=== PATIENT | male | born 1960 | race Two or more races ===

== ENCOUNTER 2021-06-23 13:33 | Inpatient (IN) | payer MEDICAID, OTHER ==
[~2021-06-23] VITALS: Ht 175.3 cm; Wt 90.5 kg
[2021-06-23] MEDS ORDERED: ACETAMINOPHEN 325MG TABLET PO STA (14:01)
[2021-06-23] MEDS ORDERED: MORPHINE SULFATE 4 MG/ML CPJ (NOT FOR IM USE) IV STA (14:01)
[2021-06-23] MEDS ORDERED: ONDANSETRON HCL 4MG/2ML INJ IV STA (14:01)
[2021-06-23] MEDS ORDERED: SODIUM CHLORIDE 0.9% 1000ML BAG (SEPSIS BOLUS) IV ONE (14:15)
[2021-06-23] MEDS ORDERED: CEFTRIAXONE 1 G PREMIX 50 ML IV ONE (14:15)
[2021-06-23] MEDS ORDERED: AZITHROMYCIN 500 MG in DEXT 5% WATER 250 ML IV ONE (14:15)
[2021-06-23 15:12] LABS: HEMATOCRIT. 40.3 % (42.0-52.0); HEMOGLOBIN. 13.4 g/dL (14.0-18.0); MEAN CORPUSCULAR HEMOGLOBIN 28.6 pg (28.0-32.0); MEAN PLATELET VOLUME 6.9 fl (7.4-10.4); PLATELET 372 x1000/uL (130-400); RED BLOOD CELL COUNT 4.69 mill/uL (4.7-6.1); RED CELL DISTRIBUTION WIDTH 13.6 % (11.6-14.6)
[2021-06-23 15:18] LABS: CHLORIDE 106 mEq/L (98-107)
[2021-06-23 15:28] LABS: CREATINE KINASE 37 IU/L (39-308)
[2021-06-23 15:29] LABS: T4 FREE 1.28 ng/dL (0.76-1.46)
[2021-06-23 15:31] LABS: D-DIMER 1.75 mg/L FEU (<0.50); PROTHROMBIN TIME 11.1 sec (9.6-11.0)
[2021-06-23 16:38] LABS: PLATELET ESTIMATE NORMAL
[2021-06-23 16:57] LABS: CLARITY URINE CLEAR (CLEAR); COLOR URINE YELLOW (YELLOW); KETONES URINE TRACE (NEGATIVE); LEUKOCYTE ESTERASE URINE NEGATIVE (NEGATIVE); NITRITE URINE NEGATIVE (NEGATIVE); OCCULT BLOOD URINE 1+ (NEGATIVE); PROTEIN URINE 2+ (NEGATIVE)
[2021-06-23] MEDS ORDERED: ACETAMINOPHEN 325MG TABLET PO PRN ×2 (19:45)
[2021-06-23] MEDS ORDERED: CLONIDINE 0.1MG TABLET PO PRN (19:45)
[2021-06-23] MEDS ORDERED: IPRATROPIUM/ALBUTEROL 0.5-3(2.5)MG/3ML NEB HHN PRN (19:45)
[2021-06-23] MEDS ORDERED: VANCOMYCIN 2,000 MG in DEXT 5% WATER 500 ML IV NR (21:00)
[2021-06-23] MEDS: SODIUM CHLORIDE 0.9% 1,000 ML IV SCH (21:29)
[2021-06-23] MEDS ORDERED: PIPERACILLIN/TAZOBACTAM 3.375 G in DEXTROSE 5% WATER 50 ML IV SCH (22:00)
[2021-06-24] VITALS (28 sets, daily range): BP systolic 100–154; BP diastolic 52–82
[2021-06-24] MEDS: LORAZEPAM 0.5MG TABLET PO PRN (00:01)
[2021-06-24] MEDS: ONDANSETRON HCL 4MG/2ML INJ IV PRN ×3 (00:03→15:31)
[2021-06-24] MEDS ORDERED: FINA5TAB11 PO (04:22)
[2021-06-24] MEDS ORDERED: EMPA1TAB7 PO (04:23)
[2021-06-24] MEDS ORDERED: *PATIENT'S OWN MEDICATION STORAGE XX SCH (05:45)
[2021-06-24] MEDS ORDERED: DEXTROSE 50% WATER 50ML SYRINGE IV PRN ×2 (05:45)
[2021-06-24] MEDS: PIPERACILLIN/TAZOBACTAM 3.375 G in DEXTROSE 5% WATER 50 ML IV SCH ×3 (06:20→22:44)
[2021-06-24] MEDS: BLOOD SUGAR DIAGNOSTIC STRIP TEST SCH ×5 (06:20→20:28)
[2021-06-24] MEDS: SODIUM CHLORIDE 0.9% 1,000 ML IV SCH ×2 (06:20→18:13)
[2021-06-24] MEDS ORDERED: BLOOD SUGAR DIAGNOSTIC STRIP TEST SCH (07:20)
[2021-06-24] MEDS: INSULIN LISPRO 100 UNITS/ML SUBCUT SCH ×4 (07:35→20:28)
[2021-06-24] MEDS: HYDROCODONE/ACETAMINOPHEN 5/325MG TABLET PO PRN (09:30)
[2021-06-24 09:33] LABS: BASOPHILS % 0.6 % (0.0-2.0); EOSINOPHILS % 0.2 % (0.0-5.0); HEMATOCRIT. 38.1 % (42.0-52.0); HEMOGLOBIN. 12.5 g/dL (14.0-18.0); LYMPHOCYTES % 10.4 % (20.0-50.0); MEAN CORPUSCULAR HEMOGLOBIN 28.6 pg (28.0-32.0); MONOCYTES % 3.9 % (2.0-8.0); NEUTROPHILS % 84.9 % (40.0-76.0); PLATELET 329 x1000/uL (130-400); RED BLOOD CELL COUNT 4.38 mill/uL (4.7-6.1); RED CELL DISTRIBUTION WIDTH 14.1 % (11.6-14.6)
[2021-06-24] MEDS ORDERED: PNEUMOCOCCAL 23-VAL P-SAC VAC 0.5 ML IM ONE (12:00)
[2021-06-24] MEDS ORDERED: SUCCINYLCHOLINE CHLORIDE 200MG/10ML IV ONE (16:39)
[2021-06-24] MEDS ORDERED: GLYCOPYRROLATE 0.2 MG/ML 2ML VIAL ONE (16:39)
[2021-06-24] MEDS ORDERED: PROPOFOL 200MG/20ML VIAL IV ONE (16:39)
[2021-06-24] MEDS ORDERED: FENTANYL CITRATE/PF 50MCG/ML 2ML VIAL ONE (16:39)
[2021-06-24] MEDS ORDERED: METOCLOPRAMIDE HCL 10MG/2ML VIAL ONE (16:39)
[2021-06-24] MEDS ORDERED: MIDAZOLAM HCL 2 MG/2 ML VIAL ONE (16:39)
[2021-06-24] MEDS ORDERED: ONDANSETRON HCL 4MG/2ML INJ ONE (16:39)
[2021-06-24] MEDS ORDERED: CEFAZOLIN SODIUM 1000MG/VIAL ONE (16:44)
[2021-06-24] MEDS ORDERED: DILTIAZEM HCL 5MG/ML 5ML VIAL IV NR (17:30)
[2021-06-24] MEDS ORDERED: PHENYLEPHRINE 50 MG in DEXT 5% WATER 245 ML IV PRN (17:45)
[2021-06-24] MEDS ORDERED: ENOXAPARIN 80MG/0.8ML SYR SUBCUT NR (17:45)
[2021-06-24] MEDS ORDERED: DILTIAZEM HCL 5MG/ML 5ML VIAL IV PRN (17:45)
[2021-06-24] MEDS ORDERED: DIGOXIN 500MCG/2ML AMP IV NR (18:00)
[2021-06-24] MEDS ORDERED: NALOXONE HCL 0.4MG/ML VIAL IV PRN (18:00)
[2021-06-24] MEDS: ASPIRIN 81MG TABLET PO SCH (18:13)
[2021-06-24] MEDS: VANCOMYCIN 1250MG in DEXTROSE 5% WATER 250ML IV SCH (20:23)
[2021-06-24] MEDS: DILTIAZEM HCL 125 MG in DEXT 5% WATER 100 ML IV PRN (20:28)
[2021-06-24] MEDS: DIGOXIN 500MCG/2ML AMP IV SCH (23:33)
[2021-06-25] VITALS (97 sets, daily range): BP systolic 99–152; BP diastolic 28–115
[2021-06-25] MEDS: HYDROCODONE/ACETAMINOPHEN 5/325MG TABLET PO PRN ×2 (03:47→15:56)
[2021-06-25] MEDS: DIGOXIN 500MCG/2ML AMP IV SCH (03:47)
[2021-06-25] MEDS: DILTIAZEM HCL 125 MG in DEXT 5% WATER 100 ML IV PRN (05:07)
[2021-06-25] MEDS: PIPERACILLIN/TAZOBACTAM 3.375 G in DEXTROSE 5% WATER 50 ML IV SCH ×3 (06:46→21:22)
[2021-06-25 07:21] LABS: BASOPHILS % 0.6 % (0.0-2.0); EOSINOPHILS % 1.2 % (0.0-5.0); HEMOGLOBIN. 11.9 g/dL (14.0-18.0); LYMPHOCYTES % 14.2 % (20.0-50.0); MEAN CORPUSCULAR HEMOGLOBIN 28.7 pg (28.0-32.0); MEAN CORPUSCULAR VOLUME 86.6 fL (80.0-94.0); MEAN PLATELET VOLUME 6.7 fl (7.4-10.4); MONOCYTES % 7.8 % (2.0-8.0); NEUTROPHILS % 76.2 % (40.0-76.0); PLATELET 335 x1000/uL (130-400); RED BLOOD CELL COUNT 4.16 mill/uL (4.7-6.1); RED CELL DISTRIBUTION WIDTH 13.7 % (11.6-14.6)
[2021-06-25] MEDS: BLOOD SUGAR DIAGNOSTIC STRIP TEST SCH ×4 (07:53→21:00)
[2021-06-25] MEDS: INSULIN LISPRO 100 UNITS/ML SUBCUT SCH ×4 (07:53→21:07)
[2021-06-25] MEDS: ASPIRIN 81MG TABLET PO SCH (08:29)
[2021-06-25] MEDS ORDERED: DEXT 5%/0.45% NACL 1000ML 1,000 ML IV SCH (10:30)
[2021-06-25] MEDS: MORPHINE SULFATE 2 MG/ML CPJ (NOT FOR IM USE) IV PRN (10:38)
[2021-06-25] MEDS ORDERED: IOHEXOL-300 50 ML BOTTLE IV ONE (10:39)
[2021-06-25] MEDS ORDERED: LIDOCAINE HCL 1% 20ML VIAL (Pyxis) INJ ONE ×2 (10:40→14:42)
[2021-06-25] MEDS ORDERED: AMIODARONE HCL 150 MG in DEXT 5% WATER 100 ML IV NR (11:00)
[2021-06-25] MEDS: ONDANSETRON HCL 4MG/2ML INJ IV PRN (11:21)
[2021-06-25 12:19] LABS: DIGOXIN 1.6 ng/mL (0.9-2.0)
[2021-06-25] MEDS ORDERED: DILTIAZEM HCL 5MG/ML 5ML VIAL IV SCH (13:00)
[2021-06-25] MEDS ORDERED: ESMOLOL 2500MG PREMIX 250 ML IV PRN (13:30)
[2021-06-25] MEDS: METOPROLOL TARTRATE 25MG TABLET PO SCH ×2 (13:39→21:00)
[2021-06-25] MEDS: AMIODARONE HCL 900 MG in DEXT 5% WATER 482 ML IV PRN (13:56)
[2021-06-25] MEDS ORDERED: AMIODARONE HCL 150 MG in DEXT 5% WATER 100 ML IV SCH (14:00)
[2021-06-25] MEDS: NITROGLYCERIN OINT 1GM/INCH UDPKT TD SCH ×2 (14:15→21:37)
[2021-06-25] MEDS ORDERED: ENOXAPARIN 80MG/0.8ML SYR SUBCUT NR (15:00)
[2021-06-25] MEDS: SODIUM CHLORIDE 0.9% 1,000 ML IV SCH (15:58)
[2021-06-25 20:51] LABS: *COCAINE SCREEN URINE NEGATIVE (NEGATIVE); PHENCYCLIDINE URINE SCREEN NEGATIVE (NEGATIVE)
[2021-06-25 20:52] LABS: *AMPHETAMINES SCREEN URINE NEGATIVE (NEGATIVE); *BARBITURATES SCREEN URINE NEGATIVE (NEGATIVE); *BENZODIAZEPINES SCREEN URINE PRESUMTIVE POSITIVE (NEGATIVE); CANNABINOID URINE SCREEN NEGATIVE (NEGATIVE); METHADONE URINE SCREEN NEGATIVE (NEGATIVE); OPIATES URINE SCREEN PRESUMTIVE POSITIVE (NEGATIVE)
[2021-06-25] MEDS: VANCOMYCIN 1250MG in DEXTROSE 5% WATER 250ML IV SCH (21:00)
[2021-06-26] VITALS (78 sets, daily range): BP systolic 67–175; BP diastolic 23–141
[2021-06-26] MEDS: PIPERACILLIN/TAZOBACTAM 3.375 G in DEXTROSE 5% WATER 50 ML IV SCH ×3 (05:51→22:14)
[2021-06-26] MEDS: NITROGLYCERIN OINT 1GM/INCH UDPKT TD SCH ×3 (06:00→22:14)
[2021-06-26 06:17] LABS: BASOPHILS % 0.3 % (0.0-2.0); HEMATOCRIT. 37.2 % (42.0-52.0); HEMOGLOBIN. 12.2 g/dL (14.0-18.0); LYMPHOCYTES % 11.7 % (20.0-50.0); MEAN CORPUSCULAR HEMOGLOBIN 28.7 pg (28.0-32.0); MEAN CORPUSCULAR VOLUME 87.3 fL (80.0-94.0); MONOCYTES % 5.1 % (2.0-8.0); NEUTROPHILS % 81.9 % (40.0-76.0); PLATELET 318 x1000/uL (130-400); RED BLOOD CELL COUNT 4.26 mill/uL (4.7-6.1); RED CELL DISTRIBUTION WIDTH 14.2 % (11.6-14.6)
[2021-06-26 06:33] LABS: CHLORIDE 106 mEq/L (98-107)
[2021-06-26 06:56] LABS: DIGOXIN 0.9 ng/mL (0.9-2.0)
[2021-06-26] MEDS: BLOOD SUGAR DIAGNOSTIC STRIP TEST SCH ×3 (07:50→18:11)
[2021-06-26] MEDS: INSULIN LISPRO 100 UNITS/ML SUBCUT SCH ×3 (08:20→18:11)
[2021-06-26] MEDS: SODIUM CHLORIDE 0.9% 1,000 ML IV SCH ×2 (08:56→19:53)
[2021-06-26] MEDS: METOPROLOL TARTRATE 25MG TABLET PO SCH ×2 (08:57→20:49)
[2021-06-26] MEDS ORDERED: AMIODARONE HCL 150 MG in DEXT 5% WATER 100 ML IV ONE (11:45)
[2021-06-26] MEDS: VANCOMYCIN 1 G PREMIX 200 ML IV SCH (13:31)
[2021-06-26] MEDS ORDERED: LIDOCAINE HCL 1% 20ML VIAL (Pyxis) INJ ONE (14:59)
[2021-06-26] MEDS ORDERED: IOHEXOL-300 50 ML BOTTLE IV ONE (14:59)
[2021-06-26] MEDS: AMIODARONE HCL 900 MG in DEXT 5% WATER 482 ML IV PRN (15:00)
[2021-06-26] MEDS ORDERED: FENTANYL CITRATE/PF 50MCG/ML 2ML VIAL ONE (15:32)
[2021-06-26] MEDS: MORPHINE SULFATE 2 MG/ML CPJ (NOT FOR IM USE) IV PRN (16:53)
[2021-06-26] MEDS: ONDANSETRON HCL 4MG/2ML INJ IV PRN (16:53)
[2021-06-26] MEDS: HYDROCODONE/ACETAMINOPHEN 5/325MG TABLET PO PRN (19:51)
[2021-06-26] MEDS: AMIODARONE HCL 200 MG TABLET PO SCH (20:49)
[2021-06-26] MEDS: LORAZEPAM 0.5MG TABLET PO PRN (20:50)
[2021-06-27] VITALS (64 sets, daily range): BP systolic 112–149; BP diastolic 27–108
[2021-06-27] MEDS: HYDROCODONE/ACETAMINOPHEN 5/325MG TABLET PO PRN (00:44)
[2021-06-27 06:02] LABS: BASOPHILS % 0.7 % (0.0-2.0); EOSINOPHILS % 0.9 % (0.0-5.0); HEMATOCRIT. 22.4 % (42.0-52.0); HEMOGLOBIN. 7.6 g/dL (14.0-18.0); LYMPHOCYTES % 17.5 % (20.0-50.0); MEAN CORPUSCULAR HEMOGLOBIN 29.2 pg (28.0-32.0); MEAN PLATELET VOLUME 7.1 fl (7.4-10.4); MONOCYTES % 7.1 % (2.0-8.0); NEUTROPHILS % 73.8 % (40.0-76.0); PLATELET 412 x1000/uL (130-400); RED CELL DISTRIBUTION WIDTH 13.8 % (11.6-14.6)
[2021-06-27] MEDS: NITROGLYCERIN OINT 1GM/INCH UDPKT TD SCH ×3 (06:42→21:07)
[2021-06-27] MEDS: PIPERACILLIN/TAZOBACTAM 3.375 G in DEXTROSE 5% WATER 50 ML IV SCH ×3 (06:42→21:07)
[2021-06-27] MEDS: SODIUM CHLORIDE 0.9% 1,000 ML IV SCH ×2 (08:03→22:49)
[2021-06-27] MEDS: VANCOMYCIN 1 G PREMIX 200 ML IV SCH (09:04)
[2021-06-27] MEDS: AMIODARONE HCL 200 MG TABLET PO SCH (09:04)
[2021-06-27] MEDS: METOPROLOL TARTRATE 25MG TABLET PO SCH ×2 (09:04→21:00)
[2021-06-27 11:55] LABS: HEMOGLOBIN 11.3 g/dL (14.0-18.0)
[2021-06-27] MEDS: DOCUSATE SODIUM 100MG CAPSULE PO PRN (18:24)
[2021-06-28] VITALS (21 sets, daily range): BP systolic 101–169; BP diastolic 26–120
[2021-06-28] MEDS: VANCOMYCIN 1 G PREMIX 200 ML IV SCH ×2 (02:01→20:31)
[2021-06-28] MEDS: PIPERACILLIN/TAZOBACTAM 3.375 G in DEXTROSE 5% WATER 50 ML IV SCH ×2 (05:01→14:58)
[2021-06-28] MEDS: NITROGLYCERIN OINT 1GM/INCH UDPKT TD SCH ×3 (06:48→22:14)
[2021-06-28 07:39] LABS: BASOPHILS % 0.9 % (0.0-2.0); EOSINOPHILS % 2.9 % (0.0-5.0); LYMPHOCYTES % 23.1 % (20.0-50.0); MEAN CORPUSCULAR HEMOGLOBIN 28.1 pg (28.0-32.0); MEAN CORPUSCULAR VOLUME 86.8 fL (80.0-94.0); MEAN PLATELET VOLUME 7.1 fl (7.4-10.4); MONOCYTES % 9.2 % (2.0-8.0); NEUTROPHILS % 63.9 % (40.0-76.0); PLATELET 388 x1000/uL (130-400); RED BLOOD CELL COUNT 4.14 mill/uL (4.7-6.1); RED CELL DISTRIBUTION WIDTH 13.9 % (11.6-14.6)
[2021-06-28 07:52] LABS: HEMATOCRIT. 35.9 % (42.0-52.0); HEMOGLOBIN. 11.6 g/dL (14.0-18.0)
[2021-06-28 08:11] LABS: CHLORIDE 109 mEq/L (98-107)
[2021-06-28 08:19] LABS: PHOSPHORUS 3.3 mg/dL (2.5-4.9)
[2021-06-28] MEDS: METOPROLOL TARTRATE 25MG TABLET PO SCH ×2 (08:42→22:00)
[2021-06-28] MEDS ORDERED: NITROGLYCERIN 50MCG/ML 10ML VIAL (CATH LAB) IV ONE (09:20)
[2021-06-28] MEDS ORDERED: HEPARIN SODIUM 1,000 UNIT/1ML VIAL IV ONE (09:20)
[2021-06-28] MEDS ORDERED: NICARDIPINE 100MCG/ML 10ML VIAL (CATH LAB) IV ONE (09:20)
[2021-06-28] MEDS: AMIODARONE HCL 200 MG TABLET PO SCH ×2 (10:34→20:31)
[2021-06-28] MEDS: SODIUM CHLORIDE 0.9% 1,000 ML IV SCH (11:15)
[2021-06-28] MEDS ORDERED: ASPIRIN/SOD BICARB/CITRIC ACID 324MG TAB EFF ONE (13:25)
[2021-06-28] MEDS ORDERED: LIDOCAINE HCL 1% 20ML VIAL (Pyxis) INJ ONE (13:26)
[2021-06-28] MEDS ORDERED: MIDAZOLAM HCL 2 MG/2 ML VIAL ONE (13:26)
[2021-06-28] MEDS ORDERED: FENTANYL CITRATE/PF 50MCG/ML 2ML VIAL ONE (13:26)
[2021-06-28] MEDS ORDERED: IODIXANOL 320MG/ML 100 ML BOTTLE IV ONE (13:27)
[2021-06-28] MEDS ORDERED: ONDANSETRON HCL 4MG/2ML INJ IV PRN (14:00)
[2021-06-28] MEDS ORDERED: ATROPINE SULFATE 1MG/10ML SYR IV PRN (14:00)
[2021-06-28] MEDS ORDERED: MORPHINE SULFATE 2 MG/ML CPJ (NOT FOR IM USE) IV PRN (14:00)
[2021-06-28] MEDS: AMLODIPINE 2.5MG TABLET PO SCH (22:13)
[2021-06-29] VITALS (17 sets, daily range): BP systolic 126–161; BP diastolic 58–95
[2021-06-29] MEDS: SODIUM CHLORIDE 0.9% 1,000 ML IV SCH ×2 (01:14→12:57)
[2021-06-29] MEDS: ACETAMINOPHEN 325MG TABLET PO PRN ×2 (01:55→20:02)
[2021-06-29] MEDS: NITROGLYCERIN OINT 1GM/INCH UDPKT TD SCH ×3 (06:14→23:24)
[2021-06-29 07:19] LABS: BASOPHILS % 0.9 % (0.0-2.0); EOSINOPHILS % 3.8 % (0.0-5.0); HEMATOCRIT. 37.6 % (42.0-52.0); HEMOGLOBIN. 12.5 g/dL (14.0-18.0); LYMPHOCYTES % 21.8 % (20.0-50.0); MEAN CORPUSCULAR HEMOGLOBIN 28.7 pg (28.0-32.0); MEAN CORPUSCULAR VOLUME 86.4 fL (80.0-94.0); MEAN PLATELET VOLUME 6.8 fl (7.4-10.4); MONOCYTES % 5.2 % (2.0-8.0); NEUTROPHILS % 68.3 % (40.0-76.0); PLATELET 455 x1000/uL (130-400); RED BLOOD CELL COUNT 4.36 mill/uL (4.7-6.1); RED CELL DISTRIBUTION WIDTH 13.6 % (11.6-14.6)
[2021-06-29 07:41] LABS: PHOSPHORUS 3.6 mg/dL (2.5-4.9)
[2021-06-29] MEDS: ASPIRIN 81MG EC TABLET PO SCH (08:19)
[2021-06-29] MEDS: AMIODARONE HCL 200 MG TABLET PO SCH ×2 (08:19→20:02)
[2021-06-29] MEDS: AMLODIPINE 2.5MG TABLET PO SCH ×2 (08:20→23:24)
[2021-06-29] MEDS: METOPROLOL TARTRATE 25MG TABLET PO SCH ×2 (09:00→21:00)
[2021-06-29] MEDS ORDERED: CEFTRIAXONE 2 G PREMIX 50 ML IV SCH (12:30)
[2021-06-29] MEDS ORDERED: CEFAZOLIN 2,000 MG in DEXT 5% WATER 100 ML IV SCH (14:00)
[2021-06-29] MEDS: CEFTRIAXONE 2 G in DEXTROSE 5% WATER 50 ML IV SCH (14:13)
[2021-06-29] MEDS ORDERED: VANCOMYCIN 1 G PREMIX 200 ML IV SCH (15:00)
[2021-06-29] MEDS: MAGNESIUM OXIDE 400MG TABLET PO SCH (15:50)
[2021-06-29] MEDS: DOCUSATE SODIUM 100MG CAPSULE PO PRN (17:59)
[2021-06-30] VITALS (9 sets, daily range): BP systolic 129–157; BP diastolic 56–93
[2021-06-30] MEDS: NITROGLYCERIN OINT 1GM/INCH UDPKT TD SCH ×2 (06:27→13:00)
[2021-06-30 07:18] LABS: BASOPHILS % 0.9 % (0.0-2.0); EOSINOPHILS % 4.9 % (0.0-5.0); HEMATOCRIT. 36.5 % (42.0-52.0); HEMOGLOBIN. 12.2 g/dL (14.0-18.0); LYMPHOCYTES % 21.7 % (20.0-50.0); MEAN CORPUSCULAR HEMOGLOBIN 28.8 pg (28.0-32.0); MEAN PLATELET VOLUME 6.7 fl (7.4-10.4); MONOCYTES % 6.2 % (2.0-8.0); NEUTROPHILS % 66.3 % (40.0-76.0); PLATELET 537 x1000/uL (130-400); RED BLOOD CELL COUNT 4.25 mill/uL (4.7-6.1)
[2021-06-30] MEDS: AMLODIPINE 2.5MG TABLET PO SCH (08:25)
[2021-06-30] MEDS: ASPIRIN 81MG EC TABLET PO SCH (08:25)
[2021-06-30] MEDS: AMIODARONE HCL 200 MG TABLET PO SCH (08:25)
[2021-06-30] MEDS: MAGNESIUM OXIDE 400MG TABLET PO SCH (08:26)
[2021-06-30] MEDS: METOPROLOL TARTRATE 25MG TABLET PO SCH (08:27)
[2021-06-30] MEDS ORDERED: METO25TA6 PO (12:40)
[2021-06-30] MEDS ORDERED: AMI2 PO (12:40)
[2021-06-30] MEDS ORDERED: ASPI-1406 PO (12:40)
[2021-06-30] MEDS ORDERED: AMLO2.5T45 PO (12:40)
[2021-06-30] MEDS: CEFTRIAXONE 2 G in DEXTROSE 5% WATER 50 ML IV SCH (13:00)
== END 2021-06-30 14:40 | disposition home health service (06) | DRG 720 ==
LOC: ER 14:02 → 6WST 19:14 → EDBEDREQTM 19:53 → EDBEDREQSVC 19:53 → EDBEDREQ 19:53 → ENRESERV 06-24 02:08 → CVICU 06-24 17:42 → 3WST 06-27 19:04
PROVIDERS: ADMIT Internal Medicine; ATTEND Internal Medicine
PROC: 02HV33Z Insertion of Infusion Device into Superior Vena Cava, Percutaneous Approach (ICD-10-PCS; principal; 2021-06-25)
PROC: B548ZZA Ultrasonography of Superior Vena Cava, Guidance (ICD-10-PCS; 2021-06-25)
PROC: 0T9030Z Drainage of Right Kidney with Drainage Device, Percutaneous Approach (ICD-10-PCS; 2021-06-26)
PROC: 4A023N7 Measurement of Cardiac Sampling and Pressure, Left Heart, Percutaneous Approach (ICD-10-PCS; 2021-06-28)
PROC: B2111ZZ Fluoroscopy of Multiple Coronary Arteries using Low Osmolar Contrast (ICD-10-PCS; 2021-06-28)
DX: A41.1 Sepsis due to other specified staphylococcus (principal); E43 Unspecified severe protein-calorie malnutrition; N17.9 Acute kidney failure, unspecified; E11.22 Type 2 diabetes mellitus with diabetic chronic kidney disease; I47.1 Supraventricular tachycardia; I13.10 Hypertensive heart and chronic kidney disease without heart failure, with stage 1 through stage 4 chronic kidney disease, or unspecified chronic kidney disease; N13.6 Pyonephrosis; D64.9 Anemia, unspecified; I48.91 Unspecified atrial fibrillation; E78.5 Hyperlipidemia, unspecified; N18.9 Chronic kidney disease, unspecified; I49.3 Ventricular premature depolarization; I48.92 Unspecified atrial flutter; F17.210 Nicotine dependence, cigarettes, uncomplicated; E83.42 Hypomagnesemia; N40.0 Benign prostatic hyperplasia without lower urinary tract symptoms; R65.20 Severe sepsis without septic shock; Z87.442 Personal history of urinary calculi; Z93.6 Other artificial openings of urinary tract status; Z80.1 Family history of malignant neoplasm of trachea, bronchus and lung; Z82.49 Family history of ischemic heart disease and other diseases of the circulatory system; Z83.3 Family history of diabetes mellitus; Z83.438 Family history of other disorder of lipoprotein metabolism and other lipidemia; I25.10 Atherosclerotic heart disease of native coronary artery without angina pectoris
CPT/HCPCS: 36415; 50432; 71045; 74176; 76937; 80048; 80053; 80061; 80076; 80162; 80202; 80305; 81003; 82550; 82728; 82962; 83036; 83605; 83615; 83735; 83880; 84100; 84145; 84439; 84443; 84484; 85014; 85018; 85025; 85044; 85379; 85384; 86140; 86850; 86900; 87077; 87186; 87426; 93005; 93306; 93458; 93970; 99152; 99153; 99285; C1725; C1729; C1769; C1893; J0282; J0330; J0456; J0690; J0696; J1160; J1644; J1650; J1815; J2250; J2270; J2405; J2543; J2704; J2765; J3010; J3370; J3490; J7030; J7040; J7060; Q9967; U0003; U0005; G0500

== ENCOUNTER → 2022-04-01 | Outpatient (CLI) | payer MEDICAID ==
[~2022-04-01] MED LIST: AMI2 PO; AMLO2.5T45 PO; ASPI-1406 PO; EMPA1TAB7 PO; FINA5TAB11 PO; HYDR-4001 PO; METF-414 PO; METO25TA6 PO; TAMS-11 PO
== END | disposition home or self-care (01) ==
LOC: LAB 12:23
PROVIDERS: ATTEND Neurological Surgery
DX: Z01.812 Encounter for preprocedural laboratory examination (principal); Z20.822 Contact with and (suspected) exposure to COVID-19
CPT/HCPCS: 87426; C9803

== ENCOUNTER 2022-04-02 05:38 | Inpatient (IN) | payer MEDICAID ==
[~2022-04-02] VITALS: Ht 180.3 cm; Wt 100.7 kg
[~2022-04-02 05:38] MED LIST changes: -HYDR-4001 PO; -METF-414 PO; -TAMS-11 PO
[2022-04-02] MEDS ORDERED: SODIUM CHLORIDE 0.9% 1,000 ML IV SCH (06:10)
[2022-04-02] MEDS ORDERED: THROMBIN (BOVINE) 5000 UNITS/VIAL TOP ONE (06:22)
[2022-04-02] MEDS ORDERED: GENTAMICIN SULF 40MG/ML 2ML VIAL ONE (06:22)
[2022-04-02] MEDS ORDERED: LIDOCAINE HCL/EPINEPHRINE 1%-EPI 1:100,000 20 ML VIAL ONE (06:22)
[2022-04-02] MEDS ORDERED: PROPOFOL 200MG/20ML VIAL IV ONE ×2 (07:00→07:08)
[2022-04-02] MEDS ORDERED: ROCURONIUM BROMIDE 10MG/ML VIAL 5ML IV ONE ×2 (07:00→08:05)
[2022-04-02] MEDS ORDERED: ONDANSETRON HCL 4MG/2ML INJ ONE (07:00)
[2022-04-02] MEDS ORDERED: CEFAZOLIN SODIUM 1000MG/VIAL ONE (07:00)
[2022-04-02] MEDS ORDERED: DEXAMETHASONE 4MG/ML 1ML VIAL ONE (07:00)
[2022-04-02] MEDS ORDERED: FENTANYL CITRATE/PF 50MCG/ML 2ML VIAL ONE (07:01)
[2022-04-02] MEDS ORDERED: GLYCOPYRROLATE 0.2 MG/ML 2ML VIAL ONE ×2 (07:01)
[2022-04-02] MEDS ORDERED: MIDAZOLAM HCL 2 MG/2 ML VIAL ONE (07:01)
[2022-04-02] MEDS ORDERED: AMLO2.5T45 PO (08:56)
[2022-04-02] MEDS ORDERED: AMI2 PO (08:56)
[2022-04-02] MEDS ORDERED: TAMS-11 PO (08:58)
[2022-04-02] MEDS ORDERED: METF-414 PO (08:58)
[2022-04-02] MEDS ORDERED: HYDR-4001 PO (09:00)
[2022-04-02] MEDS ORDERED: NEOSTIGMINE METHYLSULFATE 1MG/ML 10 ML VIAL ONE (09:16)
[2022-04-02] MEDS ORDERED: HYDRALAZINE 20MG/ML VIAL IV PRN (09:30)
[2022-04-02] MEDS ORDERED: MEPERIDINE HCL/PF 25MG/ML CPJ IV PRN (10:00)
[2022-04-02] MEDS ORDERED: ONDANSETRON HCL 4MG/2ML INJ IV PRN (10:00)
[2022-04-02] MEDS ORDERED: HYDROMORPHONE HCL/PF 2MG/ML CPJ IV PRN (10:00)
[2022-04-02] MEDS ORDERED: NALOXONE HCL 0.4MG/ML VIAL IV PRN (10:00)
[2022-04-02] MEDS ORDERED: LABETALOL 5MG/ML SYR 20 MG/4 ML SYRINGE IV PRN (10:00)
[2022-04-02] MEDS: DEXT 5%/LACTATED RINGERS 1,000 ML IV SCH ×2 (12:43→19:23)
[2022-04-02] MEDS: MORPHINE SULFATE 4 MG/ML CPJ (NOT FOR IM USE) IV PRN ×3 (13:05→21:54)
[2022-04-02] MEDS ORDERED: CEFAZOLIN SODIUM 1000MG/VIAL IV SCH (14:00)
[2022-04-02] MEDS ORDERED: CEFAZOLIN 1000MG/50ML PREMIX IV SCH ×2 (15:09→22:00)
[2022-04-02] MEDS: CEFAZOLIN 1000MG PREMIX 50 ML IV SCH ×2 (15:41→21:42)
[2022-04-02] MEDS ORDERED: *PATIENT'S OWN MEDICATION STORAGE XX SCH (18:30)
[2022-04-02 19:05] VITALS: BP 122/74
[2022-04-02] MEDS ORDERED: DEXTROSE 50% WATER 50ML SYRINGE IV PRN (19:45)
[2022-04-02 20:00] VITALS: BP 130/60
[2022-04-02] MEDS: BLOOD SUGAR DIAGNOSTIC STRIP TEST SCH (21:26)
[2022-04-02] MEDS: INSULIN LISPRO 100 UNITS/ML SUBCUT SCH (21:43)
[2022-04-03] VITALS: BP 102/48
[2022-04-03] MEDS: MORPHINE SULFATE 4 MG/ML CPJ (NOT FOR IM USE) IV PRN ×5 (03:37→19:54)
[2022-04-03 04:00] VITALS: BP 121/68
[2022-04-03] MEDS: CEFAZOLIN 1000MG PREMIX 50 ML IV SCH ×3 (05:13→21:18)
[2022-04-03] MEDS: DEXT 5%/LACTATED RINGERS 1,000 ML IV SCH ×2 (05:13→16:13)
[2022-04-03 07:51] LABS: BASOPHILS % 0.3 % (0.0-2.0); EOSINOPHILS % 0.2 % (0.0-5.0); HEMATOCRIT. 38.9 % (42.0-52.0); HEMOGLOBIN. 12.6 g/dL (14.0-18.0); LYMPHOCYTES % 14.6 % (20.0-50.0); MEAN CORPUSCULAR HEMOGLOBIN 28.7 pg (28.0-32.0); MEAN CORPUSCULAR VOLUME 88.6 fL (80.0-94.0); MEAN PLATELET VOLUME 7.1 fl (7.4-10.4); MONOCYTES % 4.4 % (2.0-8.0); NEUTROPHILS % 80.5 % (40.0-76.0); PLATELET 365 x1000/uL (130-400); RED BLOOD CELL COUNT 4.39 mill/uL (4.7-6.1); RED CELL DISTRIBUTION WIDTH 14.2 % (11.6-14.6)
[2022-04-03] MEDS: INSULIN LISPRO 100 UNITS/ML SUBCUT SCH ×4 (07:58→21:30)
[2022-04-03] MEDS: BLOOD SUGAR DIAGNOSTIC STRIP TEST SCH ×4 (07:59→21:17)
[2022-04-03 08:00] VITALS: BP 124/77
[2022-04-03 08:07] LABS: CHLORIDE 109 mEq/L (98-107)
[2022-04-03 12:00] VITALS: BP 130/70
[2022-04-03 16:00] VITALS: BP 144/84
[2022-04-04] MEDS: DEXT 5%/LACTATED RINGERS 1,000 ML IV SCH ×3 (00:54→20:31)
[2022-04-04] MEDS: MORPHINE SULFATE 4 MG/ML CPJ (NOT FOR IM USE) IV PRN ×2 (00:55→05:45)
[2022-04-04] MEDS: CEFAZOLIN 1000MG PREMIX 50 ML IV SCH ×2 (05:44→14:57)
[2022-04-04] MEDS: BLOOD SUGAR DIAGNOSTIC STRIP TEST SCH ×4 (06:28→20:34)
[2022-04-04] MEDS: INSULIN LISPRO 100 UNITS/ML SUBCUT SCH ×4 (07:50→20:48)
[2022-04-04] MEDS: HYDROCODONE/ACETAMINOPHEN 5/325MG TABLET PO PRN ×3 (09:41→20:30)
[2022-04-04] MEDS ORDERED: HYDR-4001 MT (10:05)
[2022-04-04] MEDS ORDERED: ACET-3163 MT (10:05)
[2022-04-04 16:00] VITALS: BP 130/76
[2022-04-04 20:00] VITALS: BP 121/76
[2022-04-04] MEDS ORDERED: HYDRALAZINE 5 MG in SODIUM CHLORIDE 0.9% 49.5 ML IV PRN (22:45)
[2022-04-05] VITALS: BP 135/82
[2022-04-05] MEDS: MORPHINE SULFATE 4 MG/ML CPJ (NOT FOR IM USE) IV PRN ×2 (01:17→06:03)
[2022-04-05 04:00] VITALS: BP 133/85
[2022-04-05] MEDS: DEXT 5%/LACTATED RINGERS 1,000 ML IV SCH (06:31)
[2022-04-05] MEDS: BLOOD SUGAR DIAGNOSTIC STRIP TEST SCH ×2 (06:34→12:25)
[2022-04-05 08:00] VITALS: BP 137/80
[2022-04-05] MEDS: INSULIN LISPRO 100 UNITS/ML SUBCUT SCH ×2 (08:07→12:25)
[2022-04-05] MEDS: HYDROCODONE/ACETAMINOPHEN 5/325MG TABLET PO PRN (09:54)
[2022-04-05 12:00] VITALS: BP 113/75
[2022-04-05 14:33] VITALS: BP 113/75
== END 2022-04-05 16:04 | disposition home or self-care (01) | DRG 310 ==
LOC: OR 05:38 → 6EST 05:39
PROVIDERS: ADMIT Neurological Surgery; ATTEND Neurological Surgery
PROC: 0SB40ZZ Excision of Lumbosacral Disc, Open Approach (ICD-10-PCS; principal; 2022-04-02)
DX: M51.16 Intervertebral disc disorders with radiculopathy, lumbar region (principal); E11.9 Type 2 diabetes mellitus without complications; I10 Essential (primary) hypertension; Z79.82 Long term (current) use of aspirin
CPT/HCPCS: 36415; 72100; 76000; 80048; 82962; 83036; 85025; 86850; 86900; 88304; 88311; 93005; 95863; 95925; 95926; 95928; 95929; 97110; 97116; 97162; 97530; J0690; J1100; J1170; J1580; J1815; J2250; J2270; J2405; J2704; J2710; J3010; J3490; J7121

== ENCOUNTER 2023-06-14 18:32 | Emergency (ER) | payer MEDICAID ==
[~2023-06-14] VITALS: Ht 182.9 cm; Wt 99.0 kg
[~2023-06-14 18:32] MED LIST changes: +ACET-3163 MT; -ASPI-1406 PO; -EMPA1TAB7 PO; -FINA5TAB11 PO; +HYDR-4001 MT; +HYDR-4001 PO; +METF-414 PO; -METO25TA6 PO; +TAMS-11 PO
[2023-06-14 18:42] VITALS: BP 148/80; PULSE 75; RESP 20; TEMP 97.6; O2SAT 96
[2023-06-14 19:22] LABS: EOSINOPHILS % 4.5 % (0.0-5.0); HEMATOCRIT. 43.9 % (42.0-52.0); HEMOGLOBIN. 14.1 g/dL (14.0-18.0); LYMPHOCYTES % 29.7 % (20.0-50.0); MEAN CORPUSCULAR HEMOGLOBIN 29.1 pg (28.0-32.0); MEAN CORPUSCULAR HGB CONC 32.2 g/dL (31.0-37.0); MEAN CORPUSCULAR VOLUME 90.2 fL (80.0-94.0); MEAN PLATELET VOLUME 6.9 fl (7.4-10.4); MONOCYTES % 5.8 % (2.0-8.0); PLATELET 395 x1000/uL (130-400); RED BLOOD CELL COUNT 4.87 mill/uL (4.7-6.1); RED CELL DISTRIBUTION WIDTH 14.7 % (11.6-14.6); WHITE BLOOD COUNT 8.5 x1000/uL (4.5-11.0)
[2023-06-14 19:25] LABS: CHLORIDE 106 mEq/L (98-107); INDEX HEMOLYSI 1 (1-3); INDEX ICTERIC 1 (1-4); INDEX LIPEMIC 1 (1-3); POTASSIUM 3.9 mEq/L (3.5-5.1); SODIUM 136 mEq/L (136-145)
[2023-06-14 19:33] LABS: ALANINE AMINOTRANSFERASE 27 IU/L (13-61); ALBUMIN 3.6 g/dL (3.4-5.0); ASPARTATE AMINOTRANSFERASE 12 IU/L (15-37); BILIRUBIN TOTAL 0.2 mg/dL (0.1-1.0); CALCIUM 9.3 mg/dL (8.5-10.1); CARBON DIOXIDE 24 mEq/L (21-32); CREATININE 1.8 mg/dL (0.6-1.3); GLUCOSE 172 mg/dL (70-105); PROTEIN TOTAL 7.3 g/dL (6.0-8.3); UREA NITROGEN BLOOD 27 mg/dL (7-21)
[2023-06-14 19:38] LABS: CLARITY URINE CLOUDY (CLEAR); COLOR URINE YELLOW (YELLOW); GLUCOSE URINE TRACE (NEGATIVE); KETONES URINE TRACE (NEGATIVE); LEUKOCYTE ESTERASE URINE NEGATIVE (NEGATIVE); NITRITE URINE NEGATIVE (NEGATIVE); OCCULT BLOOD URINE TRACE (NEGATIVE); PROTEIN URINE TRACE (NEGATIVE); SPECIFIC GRAVITY URINE 1.029 (1.005-1.030)
[2023-06-14 19:54] LABS: BACTERIA URINE 1+; RBC URINE 0-2 /hpf (0-2); SQUAMOUS EPITHELIAL CELL URINE FEW /lpf (RARE/1+); WBC URINE 0-2 /hpf (0-2)
[2023-06-14 19:55] LABS: URIC ACID CRYSTALS URINE 2+ /lpf
== END 2023-06-14 21:15 | disposition home or self-care (01) ==
LOC: ER 18:50
DX: N40.0 Benign prostatic hyperplasia without lower urinary tract symptoms (principal); R79.89 Other specified abnormal findings of blood chemistry; M19.90 Unspecified osteoarthritis, unspecified site; I10 Essential (primary) hypertension; E11.9 Type 2 diabetes mellitus without complications; N20.0 Calculus of kidney; Z98.890 Other specified postprocedural states
CPT/HCPCS: 36415; 74176; 80053; 81003; 85025; 99284

== ENCOUNTER 2025-01-17 11:24 | Emergency (ER) | payer MEDICAID, OTHER ==
[~2025-01-17] VITALS: Ht 175.3 cm; Wt 90.0 kg
[~2025-01-17 11:24] MED LIST changes: -ACET-3163 MT; +ASPI-1406 PO; +FINA5TAB11 PO; -HYDR-4001 MT; -HYDR-4001 PO; +METO25TA6 MT; +OXYBUTYNIN 10 MG PO; +PANT40TA51
[2025-01-17 11:26] VITALS: O2SAT 100
[2025-01-17] MEDS: MECLIZINE 25MG TABLET PO ONE (12:14)
[2025-01-17 12:31] LABS: BASOPHILS % 1.2 % (0.0-2.0); EOSINOPHILS % 2.2 % (0.0-5.0); HEMATOCRIT. 42.6 % (42.0-52.0); HEMOGLOBIN. 14.2 g/dL (14.0-18.0); MEAN CORPUSCULAR HEMOGLOBIN 28.6 pg (28.0-32.0); MEAN CORPUSCULAR HGB CONC 33.3 g/dL (31.0-37.0); MEAN CORPUSCULAR VOLUME 85.9 fL (80.0-94.0); MEAN PLATELET VOLUME 7.1 fl (7.4-10.4); MONOCYTES % 5.9 % (2.0-8.0); NEUTROPHILS % 57.7 % (40.0-76.0); PLATELET 339 x1000/uL (130-400); RED BLOOD CELL COUNT 4.96 mill/uL (4.7-6.1); RED CELL DISTRIBUTION WIDTH 15.2 % (11.6-14.6); WHITE BLOOD COUNT 6.1 x1000/uL (4.5-11.0)
[2025-01-17 12:59] LABS: CHLORIDE 104 mEq/L (98-107); POTASSIUM 4.3 mEq/L (3.5-5.1); SODIUM 140 mEq/L (136-145)
[2025-01-17 13:00] LABS: CARBON DIOXIDE 26 mEq/L (21-32)
[2025-01-17 13:01] LABS: CALCIUM 9.4 mg/dL (8.7-10.4)
[2025-01-17 13:05] LABS: TROPONIN I HIGH SENSITIVITY 4 ng/L (3.0-53)
[2025-01-17 13:06] LABS: CREATININE 1.2 mg/dL (0.6-1.3); GLUCOSE 179 mg/dL (70-105); UREA NITROGEN BLOOD 16 mg/dL (9-23)
[2025-01-17 13:11] LABS: INR 1.3; PROTHROMBIN TIME 13.4 sec (9.6-11.0)
[2025-01-17] MEDS ORDERED: MECL-299 MT (13:41)
[2025-01-17 14:20] VITALS: BP 126/75; PULSE 59; RESP 16; TEMP 37.1; O2SAT 100
== END 2025-01-17 14:21 | disposition home or self-care (01) ==
LOC: ER 13:55
DX: H81.10 Benign paroxysmal vertigo, unspecified ear (principal); I10 Essential (primary) hypertension; M19.90 Unspecified osteoarthritis, unspecified site; E11.9 Type 2 diabetes mellitus without complications; Z79.82 Long term (current) use of aspirin; Z79.84 Long term (current) use of oral hypoglycemic drugs; Z79.899 Other long term (current) drug therapy; Z87.891 Personal history of nicotine dependence; Z95.1 Presence of aortocoronary bypass graft
CPT/HCPCS: 99285; 70450; 71045; 80048; 85025; 85610; 84484; 36415; 93005; J8597